=== PATIENT | female | born 1935 | race Caucasian/White ===

== ENCOUNTER 2016-05-02 21:05 | Emergency (ER) | payer MEDICARE, OTHER ==
[~2016-05-02 21:05] MED LIST: ACET300T2 PEG; ALBU0.08 INH; AMLO5 PEG; APIX2.5T PEG; APIX2.5T PO; AZIT500T2 PO; CHLO.12%30 SWISH-SPIT; DEXI30CA PO; FAMO20TA2 PEG; FERR300S PEG; FERR325T PO; GETGO ROLLING W1 MI1; LACTG TUBE; LEVA500T PO; LEVO.075 PO; LIPI10TA PEG; MAGICADU2 SWISH-SPIT; MEGE40S PO; MIDO10TA PO; NAME10TA PEG; NAME10TA PO; ROSU5 PO; SYNT88TA PEG; TYLETAB34 PO; UMECLIDINIUM INH; VENTAER INH; VILANTEROL INH
--- NOTE | 2016-05-02 21:41 | PD ---
HPI Chief Complaint: Code Blue Time Seen by Provider: 21:25 Travel History International Travel<30 days: No Contact w/Intl Traveler<30days: No Traveled to known affect area: No History of Present Illness HPI The patient is a 80-year-old female that has a history of throat cancer/neck cancer and is followed apparently at [facility] for this. She was coughing heavily today and then started coughing up profuse amounts of blood. She is brought in by [facility], they stated she may have aspirated. [facility] ambulance tried unsuccessfully to intubate her in the field they used 20 mg of etomidate for intubation. When the patient arrived the patient was breathing on her own but was unresponsive. He was apparent that the patient had large amounts of blood in her mouth and was bleeding from either the stoma or, more likely, the neck cancer. An attempt at intubation revealed good visualization of the cords but the mouth could only open up a few centimeters despite etomidate and later succinylcholine and the cords were very anterior. The tube could not make the sharp anterior curve and cricoid pressure could not displace the cords downward into an accessible position. The reason for this is likely the neck mass displacing and distorting the anatomy. Also there was considerable bleeding which obscured visualization. Both direct visualization and CMAC was used and neither could allow for intubation. An LMA airway was put in. The patient ultimately lost her pulse and ACLS protocol did not bring her back. The history from the caregiver was that the patient did not want to be put on a machine but no code instructions were written down. I discussed the patient with Dr. Valencia who states that when she left the hospital she was a "flat DNR". Dr. Valencia will sign the certificate. PFSH Past Medical History Hx Anticoagulant Therapy: Yes Arthritis: No Asthma: No Autoimmune Disease: No Anxiety: No Depression: No Heart Rhythm Problems: No Cancer: Yes (head and neck cancer s/p chemo and radiation therapy) Cardiovascular Problems: Yes High Cholesterol: Yes Chemotherapy: Yes Chest Pain: No Congestive Heart Failure: No COPD: Yes Cerebrovascular Accident: Yes Diabetes: No Diminished Hearing: No Endocrine: Yes GERD: No Genitourinary: No Headaches: Yes (HX OF OCCASIONAL) Hiatal Hernia: No Hypertension: Yes (JUST SINCE AUGUST, NO MEDS FOR THIS) Immune Disorder: No Kidney Stones: No Musculoskeletal: No Neurologic: No Psychiatric: No Reproductive: No Respiratory: Yes Immunizations Current: No Migraines: No Radiation Therapy: Yes Renal Failure: No Seizures: No Sickle Cell Disease: No Sleep Apnea: No Thyroid Disease: Yes (HYPOTHYROIDISM) Triglycerides - High: Yes Ulcer: No Menopausal: Yes Past Surgical History Abdominal Surgery: Yes AICD: No Appendectomy: Yes Arteriovenous Shunt: No Cardiac Surgery: No Ear Surgery: No Endocrine Surgery: No Eye Surgery: No Genitourinary Surgery: No Gynecologic Surgery: Yes (HYSTERECTOMY TOTAL) Hysterectomy: Yes Insulin Pump: No Joint Replacement: No Neurologic Surgery: No Oral Surgery: Yes (DENTURES FULL SET) Pacemaker: No Thoracic Surgery: No Other Surgery: Yes Social History Alcohol Use: No Tobacco Use: No (QUIT 2004) Substance Use: No Allergies-Medications (Allergen,Severity, Reaction): Coded Allergies: Spiriva (Verified Allergy, Intermediate, RASH, 03/04/16) *MDRO Multi-Drug Resistant Organism (Verified Adverse Reaction, Unknown, VRE, 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 Reported Meds & Prescriptions Reported Meds & Active Scripts Active [Umeclidin-Vilanter 62.5-25 Inh] 7 PUFF Inhp 1 Puff INH DAILY PRN 30 Days Magic Mouthwash Adult Liq (Multi-Ingredient Mouthwash/Gargle) 120 Ml Susp 10 Ml SWISH-SPIT Q2HR PRN 10 Days Namenda (Memantine) 10 Mg Tab 10 Mg PEG BID 30 Days Synthroid (Levothyroxine Sodium) 88 Mcg Tab 88 Mcg PEG DAILY@0600 30 Days Floranex (Lactobacillus Acidophilus) 1 Gm Pkt 1 Gm TUBE TID 30 Days Ferrous Sulfate Liq (Ferrous Sulfate) 300 Mg/5 Ml Soln 300 Mg PEG TID 30 Days Famotidine 20 Mg Tab 10 Mg PEG BID 30 Days Chlorhexidine Gluconate (Mouth) Liq (Chlorhexidine Gluconate) 0.12% Soln 10 Ml SWISH-SPIT BID 10 Days Lipitor (Atorvastatin Calcium) 10 Mg Tab 10 Mg PEG HS 30 Days Eliquis (Apixaban) 2.5 Mg Tab 2.5 Mg PEG BID 30 Days Norvasc (Amlodipine Besylate) 5 Mg Tab 2.5 Mg PEG DAILY 30 Days Albuterol Neb (Albuterol Sulfate) 2.5 Mg/3 Ml Neb 2.5 Mg INH Q6HR NEB 30 Days Ventolin Hfa 18 GM Inh (Albuterol Sulfate) 90 Mcg/Act Aer 1 Puff INH Q4H PRN 30 Days Acetaminophen-Codeine 300-30 mg Tab 1 Tab PEG BID PRN Walker Rolling/GetGo (Device) 1 Mis Mis 1 Ea .ROUTE DIRECTED Levaquin (Levofloxacin) 500 Mg Tab 500 Mg PO DAILY Azithromycin 500 Mg Tab 500 Mg PO DAILY Reported Crestor (Rosuvastatin Calcium) 5 Mg Tab 5 Mg PO HS Synthroid (Levothyroxine Sodium) 75 Mcg Tab 75 Mcg PO DAILY Midodrine 10 Mg Tab 10 Mg PO TID Eliquis (Apixaban) 2.5 Mg Tab 2.5 Mg PO BID Namenda (Memantine) 10 Mg Tab 10 Mg PO BID Megace Liq (Megestrol Acetate) 40 Mg/Ml Susp 400 Mg PO BID Ferrous Sulfate 325 Mg Tab 325 Mg PO TID Dexilant (Dexlansoprazole) 30 Mg Cap 30 Mg PO EVERY OTHER DAY PRN Tylenol-Codeine #3 (Acetaminophen-Codeine) 300-30 mg Tab 1 Tab PO BID PRN Review of Systems ROS Limitations: Unresponsive Physical Exam Narrative The patient comes in unresponsive but breathing on her own. She has considerable blood coming out of her mouth and required continuous suction and she likely aspirated as well. MDM Medical Decision Making Medical Screen Exam Complete: Yes Emergency Medical Condition: Yes Medical Record Reviewed: Yes Differential Diagnosis Bleeding from neck, bleeding from esophageal varices, aspiration Narrative Course The patient was bleeding from either the stomach or the neck mass. The patient likely was bleeding from the neck cancer. The airway was distorted from a neck mass. Because of the distortion of the anatomy and the blood, the patient could not be intubated and ultimately suffered cardiopulmonary arrest. I later found out, after calling Dr. Guzman, that she was a DO NOT RESUSCITATE. Diagnosis Primary Impression: Cardiopulmonary arrest Additional Impressions: Cancer of head and neck Hemorrhage Disposition: 20 Condition: Duran Liz MD May 02, 2016 21:41
[2016-05-03] MEDS ORDERED: DEXI30CA PO (00:09)
[2016-05-03] MEDS ORDERED: CIPR0.3S2 EACH EYE (00:09)
[2016-05-03] MEDS ORDERED: METO5SOL PO (00:09)
== END 2016-05-02 23:10 | disposition expired ==
LOC: PHED 21:05
DX: I46.9 Cardiac arrest, cause unspecified (principal); E78.00 Pure hypercholesterolemia, unspecified; I10 Essential (primary) hypertension
CPT/HCPCS: 99285